=== PATIENT | female | born 1950 | race Caucasian/White ===

== ENCOUNTER → 2021-01-19 02:09 | Outpatient (CLI) | payer MEDICARE, SELFPAY ==
[2021-01-19 19:00] LABS: SARS-CoV-2 RNA PCR Negative
== END ==
PROVIDERS: PCP Internal Medicine Cardiovascular Disease; Visit Provider Internal Medicine Gastroenterology
DX: Z01.812 Encounter for preprocedural laboratory examination (principal); Z20.822 Contact with and (suspected) exposure to COVID-19
CPT/HCPCS: C9803; U0003; U0005

== ENCOUNTER 2021-01-22 00:08 | Day surgery (SDC) | payer MEDICARE, SELFPAY ==
[2021-01-07 13:26] VITALS: BMI 43.0
--- NOTE | 2021-01-21 14:19 | P.PNAN_ITS ---
Anes - Initial Pre Proc Eval Procedure: Operation Date: 01/22/21 07:30 Proposed Procedures p Esophagogastroduodenoscopy & Colonoscopy - Ross Rouse MD Date/Time: 01/21/21 14:19 Surgeon: Ross Rouse MD Pre Op Diagnosis: GERD, Rectal Bleeding Patient Data Age: 70 Gender: F Height: 1.52 m Weight: 100 kg Allergies Allergy/AdvReac Type Severity Reaction Status Date / Time erythromycin base Allergy Rash Verified 01/22/21 06:13 [From E-Mycin] Vicryl Allergy Rash Uncoded 01/22/21 06:13 Home Medications Medication Instructions Recorded Confirmed Type famotidine 20 mg tablet 20 mg PO DAILY 11/20/20 01/22/21 History loratadine 10 mg capsule 10 mg PO DAILY 11/20/20 01/22/21 History olmesartan 20 mg tablet 20 mg PO DAILY 11/20/20 01/22/21 History omeprazole 40 mg capsule,delayed 40 mg PO DAILY 11/20/20 01/22/21 History release paroxetine HCl 20 mg tablet 20 mg PO DAILY 11/20/20 01/22/21 History lybwrjtbvmku-guc-vzit-FA-vit K 1 tablet PO DAILY 01/07/21 01/22/21 History [Adults Multivitamin] Patient hx anesthesia problems: none Family hx anesthesia problems: none Results Review: All pre-operative results and documents have been reviewed as part of the pre-operative evaluation. [facility] Past Medical History Medical History (Updated 01/21/21 @ 14:21 by Rc Meyer MD) Anxiety Chronic heartburn Depression GERD (gastroesophageal reflux disease) HTN (hypertension) Morbid obesity with BMI of 40.0-44.9, adult Social History Social History (Updated 11/20/20 @ 14:01 by Ashtyn Chowdhury CMA) Smoking status: Never smoker Alcohol intake: current Drinks per week: 1 Substance use: never Living arrangements: with family Spiritual care concerns: No Anes - Eval Final PreProcedure Day of Procedure 01/21/21 14:19 Patient weight: obese Heart: regular rate and rhythm Lungs: clear to auscultation and normal air movement Airway: Mallampati scale class II Neurological: alert and oriented Last oral intake: >/= 8 hours ASA classification: III Emergent: no Anesthetic plan: proceed Anesthesia type and monitoring: general GIVS Results Review: All pre-operative results and documents have been reviewed as part of the pre-operative evaluation. Informed Consent: The patient's anesthetic plan and its attendant risks and benefits were discussed with the patient/family/POA. Questions were solicited and answers provided to the satisfaction of the patient/family/POA.
[2021-01-22 06:15] VITALS: BP 149/83; PULSE 81; RESP 16; TEMP 36.6; O2SAT 95; BMI 42.8
[2021-01-22] MEDS: LACTATED RINGERS 1,000 ML 150 ML IV CONT (06:35)
--- NOTE | 2021-01-22 07:37 | WPDGICN ---
Assessment and Plan Assessment and plan (1) Family history of colon cancer in mother: Code(s): Z80.0 - Family history of malignant neoplasm of digestive organs Status: Acute Assessment and Plan: Patient's mother had colon cancer for this reason screening colonoscopy advised every 5 years. Additionally patient herself has had colon polyps in the past and has occasional bright red blood per rectum. High-fiber diet advised. Further recommendations will be given after colonoscopy. (2) GERD (gastroesophageal reflux disease): Code(s): K21.9 - Gastro-esophageal reflux disease without esophagitis Status: Acute Assessment and Plan: Patient has a history of GE reflux now with chronic heartburn despite taking omeprazole supplement with famotidine. An EGD will be performed further recommendations after endoscopy. (3) Morbid obesity with BMI of 40.0-44.9, adult: Code(s): E66.01 - Morbid (severe) obesity due to excess calories; Z68.41 - Body mass index [BMI] 40.0-44.9, adult Status: Acute Assessment and Plan: Weight loss strongly encouraged. Patient should limit calories and increase activity of possible. GI Consult Note Consult date/time: 01/22/21 07:37 HPI: Cassie Soto is a 70 year old female Presents for both colonoscopy and EGD. Patient has a history of heartburn. This has been going on for some time. She recently has begun taking omeprazole 40mg p.o. daily supplemented with famotidine at bedtime. She continues to have heartburn. For this reason EGD will be performed. She denies any dysphagia or weight loss. Patient also has a distant history of colon polyps. Family history is significant her mother had colon cancer. She has intermittently had episodes of bright red blood per rectum. Colonoscopy will be arranged to evaluate this. Review of Systems Review of Systems: All systems reviewed & are unremarkable except as noted in HPI and below PMFSH Past Medical History Medical History (Updated 01/21/21 @ 14:21 by Rc Meyer MD) Anxiety Chronic heartburn Depression GERD (gastroesophageal reflux disease) HTN (hypertension) Morbid obesity with BMI of 40.0-44.9, adult Social History Social History (Updated 11/20/20 @ 14:01 by Ashtyn Chowdhury CMA) Smoking status: Never smoker Alcohol intake: current Drinks per week: 1 Substance use: never Living arrangements: with family Spiritual care concerns: No Meds Home Medications and Allergies Home Medications Medication Instructions Recorded Confirmed Type famotidine 20 mg tablet 20 mg PO DAILY 11/20/20 01/22/21 History loratadine 10 mg capsule 10 mg PO DAILY 11/20/20 01/22/21 History olmesartan 20 mg tablet 20 mg PO DAILY 11/20/20 01/22/21 History omeprazole 40 mg capsule,delayed 40 mg PO DAILY 11/20/20 01/22/21 History release paroxetine HCl 20 mg tablet 20 mg PO DAILY 11/20/20 01/22/21 History ejcyiyhavaym-ixy-tiyk-FA-vit K 1 tablet PO DAILY 01/07/21 01/22/21 History [Adults Multivitamin] Allergies Allergy/AdvReac Type Severity Reaction Status Date / Time erythromycin base Allergy Rash Verified 01/22/21 06:13 [From E-Mycin] Vicryl Allergy Rash Uncoded 01/22/21 06:13 Vital Signs Vital Signs - 24 hr 01/22/21 06:15 Temperature 97.9 F Pulse Rate 81 Respiratory Rate 16 Blood Pressure 149/83 H Pulse Oximetry 95 Exam Narrative: Physical exam reveals patient be alert. Vital signs stable. HEENT exam unremarkable. Patient is anicteric. Lungs are clear to auscultation and percussion. Heart is without murmur or extra sounds. Abdominal exam is somewhat obese. Bowel sounds present soft nontender with no organomegaly. Digital external rectal exam is normal.
--- NOTE | 2021-01-22 07:38 | SUR.OPER ---
EGD ended at 735. Colonoscopy started at 742.
[2021-01-22 07:57] VITALS: BP 128/67; PULSE 66; RESP 18; O2SAT 99
[2021-01-22 08:07] VITALS: BP 130/64; PULSE 63; RESP 14; O2SAT 100
[2021-01-22 08:17] VITALS: BP 144/75; PULSE 62; RESP 18; O2SAT 100
== END 2021-01-22 08:35 | disposition home or self-care (01) ==
PROVIDERS: PCP Family Medicine; Visit Provider Internal Medicine Gastroenterology
PROC: 0DJ08ZZ Inspection of Upper Intestinal Tract, Via Natural or Artificial Opening Endoscopic (ICD-10-PCS; CPT 43235; principal; 2021-01-22 07:30)
DX: K62.5 Hemorrhage of anus and rectum (principal); K64.8 Other hemorrhoids; K57.30 Diverticulosis of large intestine without perforation or abscess without bleeding; Z86.010 Personal history of colon polyps; Z80.0 Family history of malignant neoplasm of digestive organs; I10 Essential (primary) hypertension; K21.9 Gastro-esophageal reflux disease without esophagitis; F41.8 Other specified anxiety disorders; E66.01 Morbid (severe) obesity due to excess calories; Z68.41 Body mass index [BMI] 40.0-44.9, adult
CPT/HCPCS: 45378; J2704; J7120

== ENCOUNTER 2022-09-29 14:39 | Outpatient (CLI) | payer MEDICARE, SELFPAY ==
[2022-09-29 14:55] LABS: Hematocrit 36.8 % (35.0-42.0); Hemoglobin 11.2 g/dL (11.7-13.8); Mean Corpuscular HGB Conc 30.4 g/dL (32.0-36.0); Mean Corpuscular Hemoglobin 27.9 pg (27.0-31.0); Mean Corpuscular Volume 91.5 fL (78.0-102.0); Mean Platelet Volume 9.9 fl (9.2-11.8); Platelet Count Result 405 K/mm3 (150-420); Red Blood Count 4.02 M/mm3 (4.20-5.40); Red Cell Distribution Width 15.6 % (11.6-14.4); White Blood Count 11.1 K/mm3 (4.8-10.8)
[2022-09-29 15:33] LABS: Alanine Aminotransferase 20 U/L (14-59); Albumin Level 3.6 g/dL (3.4-5.0); Alkaline Phosphatase 98 U/L (46-116); Anion Gap 7 mmol/L (8-16); Aspartate Amino Transferase 16 U/L (15-37); Bilirubin,Total 0.3 mg/dL (0.00-1.00); Blood Urea Nitrogen 9 mg/dL (7-18); Calcium 9.2 mg/dL (8.5-10.1); Carbon Dioxide 31 mmol/L (21-32); Chloride 104 mmol/L (98-108); Cholesterol 222 mg/dL (0-200); Estimated Glomerular Filt Rate > 60; Glucose 92 mg/dL (70-99); HDL Direct 59 mg/dL (40-60); LDL Cholesterol Calculated 101 mg/dL (<130); Osmolality Calculated 292 mOsm/kg (285-295); Potassium 4.4 mmol/L (3.5-5.1); Sodium 142 mmol/L (136-145); Total Protein 7.1 g/dL (6.4-8.2); Triglycerides 310 mg/dL (0-150)
== END 2022-09-29 14:40 | disposition home or self-care (01) ==
LOC: CHSLAB 14:43
PROVIDERS: PCP Family Medicine; Visit Provider Family Medicine
DX: I10 Essential (primary) hypertension (principal)
CPT/HCPCS: 36415; 80053; 80061; 85027

== ENCOUNTER 2023-03-18 15:23 | Outpatient (CLI) | payer MEDICARE, SELFPAY ==
[2023-03-18 15:49] LABS: Eosinophils Absolute Auto 0.14 K/mm3 (0.02-0.50); Eosinophils Percent Auto 1.4 % (1.0-6.0); Hematocrit 38.5 % (35.0-42.0); Hemoglobin 11.7 g/dL (11.7-13.8); Immature Granulocyte Absolute 0.03 K/mm3 (0.00-0.00); Immature Granulocyte Percent A 0.3 % (0.0-0.0); Lymphocytes Absolute Auto 3.12 K/mm3 (1.10-4.50); Lymphocytes Percent Auto 31.5 % (18.0-42.0); Mean Corpuscular HGB Conc 30.4 g/dL (32.0-36.0); Mean Corpuscular Hemoglobin 28.3 pg (27.0-31.0); Mean Corpuscular Volume 93.2 fL (78.0-102.0); Mean Platelet Volume 9.7 fl (9.2-11.8); Monocytes Absolute Auto 0.73 K/mm3 (0.10-0.90); Monocytes Percent Auto 7.4 % (2.0-11.0); Neutrophils Absolute Auto 5.8 K/mm3 (1.7-7.2); Neutrophils Percent Auto 58.4 % (50.0-70.0); Platelet Count Result 365 K/mm3 (150-420); Red Blood Count 4.13 M/mm3 (4.20-5.40); Red Cell Distribution Width 14.6 % (11.6-14.4); White Blood Count 9.9 K/mm3 (4.8-10.8)
[2023-03-18 16:34] LABS: Albumin Level 3.6 g/dL (3.4-5.0); Alkaline Phosphatase 87 U/L (46-116); Anion Gap 3 mmol/L (8-16); Aspartate Amino Transferase 15 U/L (15-37); Bilirubin,Total 0.4 mg/dL (0.00-1.00); Blood Urea Nitrogen 9 mg/dL (7-18); CRP 0.6 mg/dL (0.0-0.9); Calcium 9.3 mg/dL (8.5-10.1); Carbon Dioxide 35 mmol/L (21-32); Chloride 102 mmol/L (98-108); Estimated Glomerular Filt Rate > 60; Glucose 102 mg/dL (70-99); Lipase 28 U/L (16-77); Osmolality Calculated 288 mOsm/kg (285-295); Potassium 4.4 mmol/L (3.5-5.1); Sodium 140 mmol/L (136-145); Total Protein 7.3 g/dL (6.4-8.2)
[2023-03-18 16:50] LABS: Alanine Aminotransferase 8 U/L (14-59)
== END 2023-03-18 15:24 | disposition home or self-care (01) ==
LOC: CHSLAB 15:25
PROVIDERS: PCP Family Medicine; Visit Provider Family Medicine
DX: R10.9 Unspecified abdominal pain (principal); I10 Essential (primary) hypertension
CPT/HCPCS: 36415; 80053; 83690; 85025; 86140

== ENCOUNTER 2023-03-24 06:55 | Outpatient (CLI) | payer MEDICARE, SELFPAY ==
--- NOTE | ~2023-03-24 | CT_ITS ---
CT of the Abdomen and Pelvis: Indication: Abdominal pain Technique: 2.5 mm axial scans were obtained through the abdomen and pelvis following intravenous adm inistration of 100 cc of Omnipaque 350. Dose reduction technique was used on this scan by utilizing a utomated exposure control and iterative reconstruction technique. The dose-length product (DLP) was 1 342.85 mGy-cm. Findings: Scans through the lung bases demonstrate moderate to large hiatal hernia. The liver, spleen, pancreas, adrenals and kidneys are within normal limits. Cholecystectomy clips pre sent. No evidence of aortic aneurysm. No lymphadenopathy. No bowel obstruction or bowel wall thickening. There is no evidence to suggest acute appendicitis. Sm all fat-containing umbilical hernia noted. Images through the pelvis were performed. Urinary bladder unremarkable. No adnexal mass seen. No asci kenya. Impression: Moderate to large hiatal hernia. Small fat-containing umbilical hernia. Reviewed, dictated and finalized at [facility]. CHANGER Impression: Moderate to large hiatal hernia. Small fat-containing umbilical hernia.
== END 2023-03-24 06:56 | disposition home or self-care (01) ==
LOC: CHSIMG 06:56
PROVIDERS: PCP Family Medicine; Visit Provider Family Medicine
DX: R10.9 Unspecified abdominal pain (principal); K44.9 Diaphragmatic hernia without obstruction or gangrene; K42.9 Umbilical hernia without obstruction or gangrene
CPT/HCPCS: 74177; Q9967